=== PATIENT | male | born 1960 | race Caucasian/White ===

== ENCOUNTER → 2016-08-20 | Outpatient (CLI) | payer OTHER ==
[~2016-08-20] VITALS: Ht 179.1 cm; Wt 88.0 kg
[~2016-08-20] MED LIST: BUSPAR15 MG PO; LIPITOR40 MG PO; LISINOPRIL10 MG PO; MULTIPLE VITAM1 EACH PO; NORVASC10 MG PO; PROSOM 2 MG TAB2 MG PO
== END | disposition home or self-care (01) ==
LOC: AMB 12:27
PROC: 0DB68ZX Excision of Stomach, Via Natural or Artificial Opening Endoscopic, Diagnostic (ICD-10-PCS; principal; 2016-08-20)
DX: K21.0 Gastro-esophageal reflux disease with esophagitis (principal); K29.70 Gastritis, unspecified, without bleeding; K29.80 Duodenitis without bleeding; I10 Essential (primary) hypertension; F41.9 Anxiety disorder, unspecified; E78.00 Pure hypercholesterolemia, unspecified; G47.33 Obstructive sleep apnea (adult) (pediatric); Z80.0 Family history of malignant neoplasm of digestive organs; Z80.3 Family history of malignant neoplasm of breast; Z83.3 Family history of diabetes mellitus; Z82.49 Family history of ischemic heart disease and other diseases of the circulatory system; Z81.8 Family history of other mental and behavioral disorders
CPT/HCPCS: 88305; 88342 TC; J3010

== ENCOUNTER → 2016-08-27 | Outpatient (CLI) | payer OTHER | END | disposition home or self-care (01) | LOC: NUC 08-23 07:00 | DX: R10.13 Epigastric pain (principal); K21.9 Gastro-esophageal reflux disease without esophagitis | CPT/HCPCS: 78264; A9541 ==

== ENCOUNTER 2017-01-21 10:28 | Emergency (ER) | payer OTHER ==
[~2017-01-21] VITALS: Ht 180.3 cm; Wt 90.9 kg
[2017-01-21 11:10] LABS: HEMATOCRIT 48.8 % (38.0-50.0); MCH 29.4 PG (29.0-34.0); MCV 86.5 FL (86-99); MEAN PLAT.VOLUME 9.5 uM^3 (9.0-12.4); PLATELET COUNT 259 K/uL (156-360); RBC DIS.WIDTH-SD 38.3 % (39-53); RED BLOOD COUNT 5.64 M/uL (4.00-5.50); WHITE BLOOD COUNT 11.8 K/uL (4.1-10.2)
[2017-01-21 11:20] LABS: CHLORIDE 108 mEq/L (99-109); POTASSIUM 4.2 mEq/L (3.7-5.4); SODIUM 143 mEq/L (136-147)
[2017-01-21 11:21] LABS: GLUCOSE 107 mg/dL (70-99)
[2017-01-21 11:23] LABS: ANION GAP 9 MEQ/L (2-14)
[2017-01-21 11:24] LABS: SERUM ETHYL ALCOHOL < 10 mg/dL
[2017-01-21 11:25] LABS: GFR ESTIMATE (CALCULATED) > 59 mL/min/
[2017-01-21 11:26] LABS: UREA NITROGEN (BUN) 18 mg/dL (9-23)
[2017-01-21 12:27] LABS: AMPHETAMINE NEGATIVE (500 ng/mL); BARBITURATES NEGATIVE (200 ng/mL); BENZODIAZEPINES NEGATIVE (150 ng/mL); COCAINE NEGATIVE (150 ng/mL); INTERNAL CONTROLS VALID? YES; METHADONE NEGATIVE (200 ng/mL); METHAMPHETAMINE NEGATIVE (500 ng/mL); OPIATES (MORPHINE) NEGATIVE (100 ng/mL); OXYCODONE NEGATIVE (100 ng/mL); PHENCYCLIDINE NEGATIVE (25 ng/mL); PROPOXYPHENE NEGATIVE (300 ng/mL); THC CANNABINOIDS NEGATIVE (50 ng/mL); TRICYCLIC ANTIDEPRESSANTS NEGATIVE (300 ng/mL)
[2017-01-21 14:07] VITALS: BP 147/81
== END 2017-01-21 13:55 | disposition home or self-care (01) ==
LOC: EME 10:28
DX: F13.239 Sedative, hypnotic or anxiolytic dependence with withdrawal, unspecified (principal); K21.9 Gastro-esophageal reflux disease without esophagitis; I10 Essential (primary) hypertension; E78.5 Hyperlipidemia, unspecified; F32.9 Major depressive disorder, single episode, unspecified
CPT/HCPCS: 80048; 85027; 90839; 99281; 99284; G0480